=== PATIENT | female | born 1960 | race Caucasian/White ===

== ENCOUNTER 2020-07-19 15:52 | Emergency (ER) | payer BC, SELFPAY ==
--- NOTE | ~2020-07-19 | CT_ITS ---
EXAMINATION: CT abdomen pelvis wo con DATE: 07/19/2020 17:46 INDICATION: Right flank pain and right abdominal pain. TECHNIQUE: Computed tomography (CT) of the abdomen and pelvis was performed without intravenous contr ast. Automated exposure control and iterative reconstruction technique were employed. The dose-length product was 487.19 mGy-cm. COMPARISON: 11/09/2018 FINDINGS: Mild discoid atelectasis at the lingula. Heart size is normal. Atherosclerotic coronary artery calcif ication. No pericardial or pleural effusion. Small sliding-type hiatal hernia. No significant change in a couple small low-attenuation hepatic cysts versus hemangiomas, the larger measuring 1.4 cm. Chol ecystectomy clips at the gallbladder fossa. Spleen, pancreas and bilateral adrenal glands are normal. No interval change in a 4.0 x 1.6 x 1.5 cm exophytic lesion at the posterior aspect of the upper maikol e of the left kidney which is without enhancement on prior study consistent with a proteinaceous/hemo rrhagic cyst. There are a few diverticula the ascending and sigmoid colon without adjacent from 3 jesica nge to suggest diverticulitis. No bowel obstruction. The appendix is not visualized. No pericecal inf lammatory change to suggest acute appendicitis. Bladder, anteverted uterus and bilateral adnexa are u nremarkable. No free intraperitoneal gas or fluid. No pathologically enlarged abdominal or pelvic lym phadenopathy. Mild lumbar levocurvature with mild spondylosis. IMPRESSION: 1. No urolithiasis or acute intra-abdominal/pelvic process. Reviewed, dictated and finalized at [facility]. S PERFORMANCE ANALYST
[2020-07-19 16:02] VITALS: BP 202/118; PULSE 98; RESP 16; TEMP 36.9; O2SAT 100
[2020-07-19 16:40] LABS: Basophils Absolute Auto 0.1 K/mm3 (0.0-0.1); Basophils Percent Auto 1.2 % (0.2-1.2); Eosinophils Percent Auto 0.3 % (0-4.4); Hemoglobin 14.4 g/dL (12.0-15.0); Immature Granulocyte Absolute 0.01 K/mm3 (0.00-0.031); Immature Granulocyte Percent A 0.1 % (0-0.5); Lymphocytes Absolute Auto 2.65 K/mm3 (0.9-3.2); Lymphocytes Percent Auto 34.6 % (18.3-44.2); Mean Corpuscular HGB Conc 33.5 g/dl (32-36); Mean Corpuscular Hemoglobin 29.2 pg (26-34); Mean Corpuscular Volume 87.2 fl (80-100); Mean Platelet Volume 9.3 fl (7.4-10.4); Monocytes Absolute Auto 0.3 K/mm3 (0.1-0.6); Neutrophils Absolute Auto 4.6 K/mm3 (1.3-6.7); Neutrophils Percent Auto 59.8 % (45.5-73.1); Platelet Count Result 303 k/mm3 (150-375); Red Blood Count 4.93 M/mm3 (4.2-5.4); Red Cell Distribution Width 13.3 % (11.5-14.5); White Blood Count 7.7 K/mm3 (4.5-10.0)
--- NOTE | 2020-07-19 16:43 | ECG_ITS ---
Measurements Intervals [place] Rate: 94 P: 64 NV: 169 QRS: 80 QRSD: 85 T: 31 QT: 354 QTc: 444 Interpretive Statements SINUS RHYTHM DELAYED PRECORDIAL R/S TRANSITION BORDERLINE T WAVE ABNORMALITY- ANT/INF LEADS BASELINE ARTIFACT- I, II, AVR, AVL, AVF, V1-V6 BORDERLINE ECG Electronically Signed On 07-19-2020 20:14:20 [employer] by Kayden Best D.O.
--- NOTE | 2020-07-19 16:46 | ED.ABDPAIN ---
HPI - Abdominal Pain General Chief Complaint: Abdominal Pain Stated Complaint: ELEVATED BP/ R FLANK PAIN HAD COVID TEST YEST Time Seen by Provider: 07/19/20 16:07 Source: patient Mode of arrival: ambulatory Limitations: no limitations History of Present Illness HPI narrative: This is a 60 year old female that presents to the ER for hypertension. Reports her blood pressure has been elevated lately into the 200s systolic. Reports she has had a lot of stress lately. Reports she takes Lisinopril daily for her blood pressure. Also reports she has had intermittent right sided flank pain over the last couple of days. Reports abnormal smelling urine. Denies fever, chest pain, shortness of breath, vomiting, dysuria or hematuria. Related Data Home Medications Medication Instructions Recorded Confirmed lisinopril 07/19/20 Allergies Allergy/AdvReac Type Severity Reaction Status Date / Time codeine Allergy Mild Unknown Verified 07/19/20 16:01 oxycodone Allergy Mild Unknown Verified 07/19/20 16:01 Penicillins Allergy Mild Unknown Verified 07/19/20 16:01 Sulfa (Sulfonamide Allergy Mild Unknown Verified 07/19/20 16:01 Antibiotics) Contrast Media Allergy Mild Unknown Uncoded 07/19/20 16:01 Review of Systems Review of Systems: Narrative: CONSTITUTIONAL: Denies fever CARDIOVASCULAR: Denies chest pain RESPIRATORY: Denies dyspnea. GASTROINTESTINAL: Reports abdominal pain. Denies nausea, vomiting GENITOURINARY: Denies dysuria or hematuria. SKIN: Denies rash or itching. MUSCULOSKELETAL: Reports back pain All systems reviewed & are unremarkable except as noted in HPI and below PMFSH Past Medical History Medical History (Updated 07/19/20 @ 19:20 by Khushbu Farrar PA-C) History of hypertension Surgical History Surgical History (Updated 07/19/20 @ 16:49 by Khushbu Farrar PA-C) History of appendectomy History of cholecystectomy History of tonsillectomy History of tubal ligation Social History Social History Gender identity (if verbalized by the patient): Female Exam Narrative: Exam Narrative: GENERAL: Well-appearing, well-nourished, and in no acute distress. HEAD: Normocephalic, atraumatic. EYES: PERRLA and EOMI. ENT: Nares clear, no rhinorrhea or epistaxis. Mucous membranes moist. Oropharynx without tonsillar hypertrophy exudate or other lesions. NECK: Supple. No adenopathy or masses. CHEST: Clear to auscultation. No respiratory distress. No wheezes rales or rhonchi HEART: Regular rate and rhythm. No murmur heard. Normal peripheral pulses. ABDOMEN: Soft, nontender, nondistended, normal active bowel sounds. No CVA tenderness EXTREMITIES: Normal range of motion. No edema. Strength equal in bilateral upper and lower extremities (5/5) SKIN: Warm, dry, no rash. NEURO: No focal deficits. Alert and oriented x3. CN II-XII grossly intact PSYCH: Normal mood and affect Course Consultations Consultation #1: Spoke with Dr. Goetz about patient and work-up who would like metoprolol 25 mg daily added on. Date: 07/19/20 Time: 19:18 Vital Signs Vital signs: Vital Signs Temperature 98.4 F 07/19/20 16:02 Pulse Rate 98 07/19/20 16:02 Respiratory Rate 16 07/19/20 16:02 Blood Pressure 202/118 H 07/19/20 16:02 Pulse Oximetry 100 07/19/20 16:02 Temperature 98.4 F 07/19/20 16:02 Pulse Rate 81 07/19/20 18:53 Respiratory Rate 17 07/19/20 18:53 Blood Pressure 154/100 H 07/19/20 18:53 Pulse Oximetry 98 07/19/20 18:53 MDM - Abdominal Pain MDM Narrative Medical decision making narrative: Patient presents to the emergency department for elevated blood pressure. Reports her blood pressure has been in the 200s systolic. Does report a lot of stress lately at work. Blood pressure down trended on its own, most recent blood pressure 154/100. Patient takes lisinopril daily for this and has been taking her medication as prescribed. CBC is without acute findings. Metabolic panel with mild hypokalemia
[2020-07-19 16:57] LABS: Alanine Aminotransferase 29 U/L (4-35); Albumin Level 4.7 g/dL (3.5-5.1); Alkaline Phosphatase 124 U/L (38-126); Anion Gap 9 mmol/L (8-16); Aspartate Amino Transferase 32 U/L (14-36); Bilirubin,Total 0.7 mg/dL (0.2-1.3); Blood Urea Nitrogen 17 mg/dL (7-17); Calcium 9.3 mg/dL (8.4-10.2); Carbon Dioxide 29 mmol/L (22-30); Chloride 103 mmol/L (98-107); Estimated CRCL calculation 59 ml/min; Estimated Glomerular Filt Rate > 60; Glucose 110 mg/dL (65-105); Lipase 86 U/L (23-300); Sodium 141 mmol/L (137-145)
[2020-07-19 17:01] LABS: Potassium 3.3 mmol/L (3.4-5.0)
[2020-07-19 17:12] VITALS: BP 180/95; PULSE 84; RESP 16; O2SAT 98
[2020-07-19 18:00] LABS: Add Urine Microscopic? NO; Appearance Urine Clear (Clear); Bilirubin Urine Negative (Negative); Blood Urine Negative (Negative); Color Urine Straw (Yellow); Glucose Urine UA Negative (Negative); Ketones Urine Negative (Negative); Leukocyte Esterase Ur Negative LEU/UL (Negative); Nitrate Urine Negative (Negative); Protein Urine Negative (Negative); Specific Grav Ur 1.014 (1.001-1.035); Urobilinogen Urine Negative mg/dL (<2.0)
[2020-07-19 18:53] VITALS: BP 154/100; PULSE 81; RESP 17; O2SAT 98
[2020-07-19] MEDS: POTASSIUM CHLORIDE 20 MEQ TABLET 40 MEQ PO (19:01)
[2020-07-19 19:50] VITALS: BP 155/87; PULSE 80; RESP 15; O2SAT 97
== END 2020-07-19 19:50 | disposition home or self-care (01) ==
PROVIDERS: Physician Assistant; Emergency Provider Emergency Medicine; PCP Family Medicine
DX: I10 Essential (primary) hypertension (principal); R10.9 Unspecified abdominal pain
CPT/HCPCS: 36415; 74176; 80053; 81003; 83690; 85025; 93005; 96374; 99284; A9270; J0131

== ENCOUNTER → 2021-11-02 12:52 | Outpatient (CLI) | payer BC, SELFPAY ==
--- NOTE | ~2021-11-02 | US_ITS ---
EXAMINATION: US soft tissue head and neck DATE: 11/02/2021 13:20 INDICATION: Left supraclavicular lump. TECHNIQUE: Multiple grayscale and Doppler ultrasound images of the neck were obtained. COMPARISON: CT cervical spine 03/25/2011 FINDINGS: There are normal lymph nodes in left supraclavicular region in the patient's area of concer n. IMPRESSION: 1. No abnormal mass or lymphadenopathy in the patient's area of concern in left supraclavicular regio n. Reviewed, dictated and finalized at location [facility]. [employer]ICY ISSUE CLERK IMPRESSION: 1. No abnormal mass or lymphadenopathy in the patient's area of concern in left supraclavicular region.
== END ==
PROVIDERS: PCP Family Medicine
DX: R22.0 Localized swelling, mass and lump, head (principal)
CPT/HCPCS: 76536

== ENCOUNTER 2021-11-02 14:03 | Emergency (ER) | payer BC, SELFPAY ==
--- NOTE | ~2021-11-02 | CT_ITS ---
EXAMINATION: CT abdomen pelvis wo con DATE: 11/02/2021 15:52 INDICATION: Left flank pain. TECHNIQUE: Computed tomography (CT) of the abdomen and pelvis was performed without intravenous contr ast. Automated exposure control and iterative reconstruction technique were employed. The dose-length product was 239.43 mGy-cm. COMPARISON: CT abdomen and pelvis 07/19/2020, CT abdomen 11/09/2018 FINDINGS: The visualized portions of the lung bases demonstrate mild atelectasis. No pleural effusion . The heart size is normal. There are coronary artery calcifications. No pericardial effusion. There is a small sliding hiatal hernia. There is diffuse hepatic steatosis. There are cysts in the liver me asuring up to 13 mm. There are changes of cholecystectomy. The spleen, pancreas, adrenal glands, and right kidney are normal. There is a chronic 2.4 cm exophytic hemorrhagic cyst of left kidney. There i s no urolithiasis. There is diverticulosis of the colon without evidence of diverticulitis. There are no dilated loops of bowel. The appendix is not visualized. There is moderate lumbar spondylosis. IMPRESSION: 1. No urolithiasis. 2. Small sliding hiatal hernia. Reviewed, dictated and finalized at location [facility]
[2021-11-02 14:24] VITALS: BP 156/98; PULSE 97; RESP 18; TEMP 37.4; O2SAT 99
[2021-11-02 15:46] LABS: Basophils Absolute Auto 0.1 K/mm3 (0.0-0.1); Basophils Percent Auto 1.1 % (0.2-1.2); Eosinophils Absolute Auto 0.1 K/mm3 (0-0.3); Eosinophils Percent Auto 0.8 % (0-4.4); Hematocrit 40.1 % (37.0-47.0); Hemoglobin 13.6 g/dL (12.0-15.0); Immature Granulocyte Absolute 0.01 K/mm3 (0.00-0.031); Immature Granulocyte Percent A 0.1 % (0-0.5); Lymphocytes Absolute Auto 3.34 K/mm3 (0.9-3.2); Mean Corpuscular HGB Conc 33.9 g/dl (32-36); Mean Corpuscular Volume 85.5 fl (80-100); Mean Platelet Volume 9.3 fl (7.4-10.4); Monocytes Absolute Auto 0.4 K/mm3 (0.1-0.6); Monocytes Percent Auto 5.1 % (2.6-8.5); Neutrophils Absolute Auto 4.4 K/mm3 (1.3-6.7); Neutrophils Percent Auto 52.9 % (45.5-73.1); Platelet Count Result 283 k/mm3 (150-375); Red Blood Count 4.69 M/mm3 (4.2-5.4); Red Cell Distribution Width 13.3 % (11.5-14.5); White Blood Count 8.4 K/mm3 (4.5-10.0)
[2021-11-02 15:54] LABS: Add Urine Microscopic? YES; Appearance Urine Clear (Clear); Bilirubin Urine Negative (Negative); Blood Urine 1+ (Negative); Color Urine Yellow (Yellow); Glucose Urine UA Negative (Negative); Ketones Urine Negative (Negative); Leukocyte Esterase Ur 1+ LEU/UL (Negative); Mucus Urine Rare /lpf; Nitrate Urine Negative (Negative); Protein Urine Negative (Negative); RBC Urine 0-2 /hpf (0-2); Specific Grav Ur 1.016 (1.001-1.035); Squamous Epithelial Cell Urine Few /hpf (Few); Urobilinogen Urine Negative mg/dL (<2.0)
[2021-11-02 15:59] LABS: Atypical Lymphocytes Present; Ovalocytes 1+ (NORMAL); Platelet Estimate Adequate (Adequate)
[2021-11-02 16:02] LABS: Alanine Aminotransferase 31 U/L (4-35); Albumin Level 4.6 g/dL (3.5-5.1); Alkaline Phosphatase 112 U/L (38-126); Anion Gap 10 mmol/L (8-16); Aspartate Amino Transferase 40 U/L (14-36); Blood Urea Nitrogen 17 mg/dL (7-17); Calcium 8.9 mg/dL (8.4-10.2); Carbon Dioxide 27 mmol/L (22-30); Chloride 102 mmol/L (98-107); Estimated CRCL calculation 68 ml/min; Estimated Glomerular Filt Rate > 60; Glucose 98 mg/dL (65-110); Lipase 51 U/L (23-300); Potassium 3.2 mmol/L (3.4-5.0); Sodium 139 mmol/L (137-145)
--- NOTE | 2021-11-02 16:22 | ED.ABDPAIN ---
HPI - Abdominal Pain General Chief Complaint: Abdominal Pain Stated Complaint: Abd pain Time Seen by Provider: 11/02/21 15:31 Source: patient History of Present Illness HPI narrative: Patient presents with left flank pain. Patient ports she has had intermittent queasiness for the past several days however since yesterday she noted left flank pain. Her pain starts in her back and radiates to her left abdomen is sharp, constant, worse with moving around, no clear aggravating or alleviating factors. She continues report intermittent nausea but denies any vomiting diarrhea or urinary symptoms. She does report a history of a cyst on her left kidney is unsure if symptoms today were related to her cyst. Related Data Home Medications Medication Instructions Recorded Confirmed lisinopril 07/19/20 Allergies Allergy/AdvReac Type Severity Reaction Status Date / Time codeine Allergy Mild Unknown Verified 09/11/20 10:13 oxycodone Allergy Mild Unknown Verified 09/11/20 10:13 Penicillins Allergy Mild Unknown Verified 09/11/20 10:13 Sulfa (Sulfonamide Allergy Mild Unknown Verified 09/11/20 10:13 Antibiotics) Contrast Media Allergy Mild Unknown Uncoded 09/11/20 10:13 Review of Systems Review of Systems: CONSTITUTIONAL: Denies fever, chills, or sweats. EYES: Denies visual changes, redness, or discharge. ENT: Denies rhinorrhea, congestion, sore throat, or otalgia. CARDIOVASCULAR: Denies chest pain, palpitations, or edema. RESPIRATORY: Denies cough or dyspnea. GASTROINTESTINAL: Left flank pain and nausea GENITOURINARY: Denies dysuria or hematuria. SKIN: Denies rash or itching. MUSCULOSKELETAL: Denies back pain, joint pain, or myalgia. NEUROLOGIC: Denies headache, numbness, dizziness, or weakness. PSYCHIATRIC: Denies anxiety or depression. All systems reviewed & are unremarkable except as noted in HPI and below PMFSH Past Medical History Medical History History of hypertension Surgical History Surgical History History of appendectomy History of cholecystectomy History of tonsillectomy History of tubal ligation Social History Social History Gender identity (if verbalized by the patient): Female Exam Narrative: GENERAL: Well-appearing, well-nourished, and in no acute distress. HEAD: Normocephalic, atraumatic. EYES: PERRLA and EOMI. ENT: Nares clear, no rhinorrhea or epistaxis. Mucous membranes moist. NECK: Supple. No masses. No JVD CHEST: Clear to auscultation. No respiratory distress. No wheezes rales or rhonchi HEART: Regular rate and rhythm. No murmur heard. Normal peripheral pulses. ABDOMEN: Minimal tenderness with palpation in the left upper quadrant soft,nondistended, normal active bowel sounds. EXTREMITIES: Normal range of motion. No edema. SKIN: Warm, dry, no rash. NEURO: No focal deficits. Alert and oriented x3. PSYCH: Normal mood and affect. Course Reevaluation(s) Reevaluation #1: Results and plan reviewed with patient. Patient is comfortable outpatient plan. Date: 11/02/21 Time: 17:52 Vital Signs Vital signs: Vital Signs Temperature 37.4 C 11/02/21 14:24 Pulse Rate 97 11/02/21 14:24 Respiratory Rate 18 11/02/21 14:24 Blood Pressure 156/98 H 11/02/21 14:24 Pulse Oximetry 99 11/02/21 14:24 Temperature 37.4 C 11/02/21 14:24 Pulse Rate 76 11/02/21 18:41 Respiratory Rate 16 11/02/21 18:41 Blood Pressure 155/88 H 11/02/21 18:41 Pulse Oximetry 99 11/02/21 18:41 MDM - Abdominal Pain MDM Narrative Medical decision making narrative: H&P as above, vss, pt looks clinically well, exam with nonacute abdomen, labs clinically unremarkable, img unremarkable for acute process, additional labs/img considered, symptomatic relief available as needed, on reevaluation pt continues to looks clinically well. Sympto
[2021-11-02] MEDS: SODIUM CHLORIDE 0.9% IV 1,000 ML 999 ML IV CONT (16:28)
[2021-11-02] MEDS: KETOROLAC 15 MG/ML VIAL (*BKC) IV PUSH (17:14)
[2021-11-02] MEDS: CYCLOBENZAPRINE HCL 10 MG TABLET PO (17:50)
[2021-11-02] MEDS: ACETAMINOPHEN 500 MG TABLET 1000 MG PO (17:50)
[2021-11-02 18:41] VITALS: BP 155/88; PULSE 76; RESP 16; O2SAT 99
== END 2021-11-02 18:42 | disposition home or self-care (01) ==
PROVIDERS: General Practice; Emergency Provider Emergency Medicine; PCP Family Medicine
DX: M54.50 Low back pain, unspecified (principal); I10 Essential (primary) hypertension; K44.9 Diaphragmatic hernia without obstruction or gangrene
CPT/HCPCS: 36415; 74176; 80053; 81001; 83690; 85025; 96361; 96374; 99284; A9270; J1885; J7030

== ENCOUNTER 2022-03-11 14:22 | Outpatient (CLI) | payer BC, SELFPAY ==
--- NOTE | 2022-03-11 | ECHO_ITS ---
Patient Info Name: Tiffanie Johnson Age: 62 years : 1960 Gender: Female Ht: 61 in Wt: 162 lbs BSA: 1.81 m2 HR: 66 bpm BP: 141 / 87 mmHg Heart Rhythm: Sinus Rhythm Technical Quality: Fair Exam Date: 03/11/2022 3:32 PM Exam Location: [facility] Pulmonary Patient Status: Outpatient Admit Date: 03/11/2022 Staff Ordering Physician: DenyAriel APRN Contract Technical Writer: Kelsey Collins RDCS Attending Provider: Den*Ariel APRN Referring Physician: Harini BAUTISTA; Exam Type: CA echo doppler color flow Study Info Indications - R60.0 Complete two-dimensional, color flow and Doppler transthoracic echocardiogram is performed. Summary 1. Complete two-dimensional, color flow and Doppler transthoracic echocardiogram is performed. 2. Left ventricular chamber dimension is normal. 3. Left ventricular systolic function is normal, estimated at 60-65%. 4. The left ventricular diastolic function is abnormal. 5. E/e' 13 is mildly elevated. 6. No pulmonary hypertension, estimated pulmonary arterial systolic pressure is 23 mmHg. Left Ventricle E/e' 13 is mildly elevated. Left ventricular chamber dimension is normal. Left ventricular systolic function is normal, estimated at 60-65%. The left ventricular diastolic function is abnormal. Right Ventricle Right ventricular systolic function is normal and with normal TAPSE 2.1 cm. Right ventricular chamber dimension is normal. Left Atria Left atrial chamber dimension is normal. Right Atria Right atrial chamber dimension is normal. Aortic Valve The aortic valve is trileaflet. There is no aortic valve stenosis. There is no aortic valve regurgitation. Pulmonic Valve There is no pulmonic regurgitation. Mitral Valve There is no mitral valve stenosis. There is no mitral valve regurgitation. Tricuspid Valve There is no tricuspid valve regurgitation. No pulmonary hypertension, estimated pulmonary arterial systolic pressure is 23 mmHg. Pericardium/Pleural There is no pericardial effusion. Inferior Vena Cava Normal inferior vena cava with >50% collapse upon inspiration consistent with normal right atrial pressure, 5 mmHg. Aorta The aortic root size at the sinus of Valsalva is normal. Left Ventricular Outflow Tract Name Value Normal LVOT 2D LVOT Diameter 2.1 cm LVOT Doppler LVOT Peak Gradient 3 mmHg LVOT Mean Gradient 1 mmHg LVOT VTI 19 cm LVOT VTI/AV VTI Ratio 0.8 LVOT Stroke Volume 68 ml LVOT CO 4.5 l/min LVOT CI 2.5 l/min/m2 Pulmonic Valve Name Value Normal RVOT Doppler RVOT Peak Gradient 1 mmHg PV Doppler -------
== END 2022-03-11 14:23 | disposition home or self-care (01) ==
LOC: ANHCARD 14:25
PROVIDERS: PCP Family Medicine; Visit Provider Nurse Practitioner Adult Health
DX: R60.0 Localized edema (principal); R93.1 Abnormal findings on diagnostic imaging of heart and coronary circulation
CPT/HCPCS: 93306

== ENCOUNTER 2022-11-10 08:21 | Emergency (ER) | payer BC, SELFPAY ==
[2022-11-10 08:39] VITALS: BP 167/89; PULSE 86; RESP 18; TEMP 37.4; O2SAT 99
--- NOTE | 2022-11-10 09:01 | ED.GENADULT ---
HPI - General Adult General Chief complaint: Upper Respiratory Infection Stated complaint: cold/flu Source: patient Mode of arrival: ambulatory Limitations: no limitations History of Present Illness HPI narrative: Patient presents for evaluation of upper respiratory symptoms for last 2 days. Symptoms include bilateral ear pain, sore throat, productive cough of clear/yellow sputum, chest tightness, chills, and diarrhea. No fever, nausea, vomiting. 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 She took a COVID test and influenza test at work and states both were negative. She tried taking Flonase and mucinex for her symptoms but does not think either were particularly helpful. She did have COVID back in May 2022. She does not smoke. Related Data Home Medications Medication Instructions Recorded Confirmed amlodipine 10 mg tablet mg 11/10/22 11/10/22 furosemide 40 mg tablet mg 11/10/22 rosuvastatin 10 mg tablet mg 11/10/22 Allergies Allergy/AdvReac Type Severity Reaction Status Date / Time codeine Allergy Mild Unknown Verified 11/10/22 08:31 oxycodone Allergy Mild Unknown Verified 11/10/22 08:31 Penicillins Allergy Mild Unknown Verified 11/10/22 08:31 Sulfa (Sulfonamide Allergy Mild Unknown Verified 11/10/22 08:31 Antibiotics) Contrast Media Allergy Mild Unknown Uncoded 05/29/22 11:04 Review of Systems Review of Systems: CONSTITUTIONAL: Reports chills. Denies fever or sweats. EYES: Denies visual changes, redness, or discharge. ENT: Reports sinus congestion, bilateral otalgia, sore throat, rhinorrhea CARDIOVASCULAR: Denies chest pain, palpitations, or edema. RESPIRATORY: Reports cough and chest tightness. Denies shortness of breath. GASTROINTESTINAL: Reports diarrhea a few days ago, since resolved. Denies abdominal pain, nausea, or vomiting GENITOURINARY: Denies dysuria or hematuria. SKIN: Denies rash or itching. MUSCULOSKELETAL: Denies back pain, joint pain, or myalgia. NEUROLOGIC: Denies headache, numbness, dizziness, or weakness. PSYCHIATRIC: Denies anxiety or depression. [facility] Past Medical History Medical History History of hypertension Systemic Lupus Erythematosus Surgical History Surgical History History of appendectomy History of cholecystectomy History of tonsillectomy History of tubal ligation Family History Family History Mother Family history non-contributory Social History Social History Substance use: never Living arrangements: alone Additional occupation/education comments: Nurse Gender identity (if verbalized by the patient): Female Exam Narrative: GENERAL: Well-appearing, well-nourished, and in no acute distress. HEAD: Normocephalic, atraumatic. EYES: PERRLA and EOMI. ENT: Nares clear, no rhinorrhea or epistaxis. Mucous membranes moist. Bilateral tympanic membrane erythema. Posterior pharyngeal erythema without exudate. Uvula is midline. NECK: Supple. No adenopathy or masses. No carotid bruits or JVD CHEST: Clear to auscultation. No respiratory distress. No wheezes rales or rhonchi HEART: Regular rate and rhythm. No murmur heard. Normal peripheral pulses. ABDOMEN: Soft, nontender, nondistended, normal active bowel sounds. EXTREMITIES: Normal range of motion. No edema. SKIN: Warm, dry, no rash. NEURO: No focal deficits. Alert and oriented x3. PSYCH: Normal mood and affect. Course Course Emergency Course: This is a 62-year-old female who presented for evaluation of sick symptoms. COVID and influenza performed prior to presentation here were both negative. Low clinical suspicion for strep. Exam is consistent with acute viral syndrome. Will discharge with Tessalon Sage
== END 2022-11-10 09:05 | disposition home or self-care (01) ==
PROVIDERS: Emergency Provider Nurse Practitioner; PCP Family Medicine
DX: J06.9 Acute upper respiratory infection, unspecified (principal); I10 Essential (primary) hypertension
CPT/HCPCS: 99213; G0463